=== PATIENT | male | born 1945 | race Caucasian/White ===

== ENCOUNTER 2022-07-08 05:46 | Day surgery (SDC) | payer MEDICARE, OTHER ==
[2022-07-08] VITALS (8 sets, daily range): BP systolic 90–166; BP diastolic 56–86; PULSE 70–80; TEMP 97.3–97.7
[~2022-07-08] VITALS: Ht 180.3 cm; Wt 97.3 kg
[2022-07-08] MEDS ORDERED: ZYLOPRIM 100MG100 MG PO (06:22)
[2022-07-08] MEDS ORDERED: BASAGLAR K100 UNIT/1 SQ (06:23)
[2022-07-08] MEDS ORDERED: RYBELSUS7 MG PO (06:24)
[2022-07-08] MEDS ORDERED: JANUVIA 100MG100 MG PO (06:25)
[2022-07-08] MEDS ORDERED: TRIAMC 0.025 80 TOP (06:26)
[2022-07-08] MEDS ORDERED: COZAAR 25MG25 MG/TAB PO (06:27)
[2022-07-08] MEDS ORDERED: LYRICA 100MG C100 M1 PO (06:28)
[2022-07-08] MEDS ORDERED: NEXIUM 40MG40 MG PO (06:28)
[2022-07-08] MEDS ORDERED: AMARYL4 MG PO (06:29)
[2022-07-08] MEDS ORDERED: GLUCOPHAGE1000 MG PO (06:30)
[2022-07-08] MEDS ORDERED: ETHAMBUTOL HYD400 MG PO (06:32)
[2022-07-08] MEDS ORDERED: ZYRTEC 10MG10 MG PO (06:34)
[2022-07-08] MEDS ORDERED: CRESTOR 10MG10 MG PO (06:35)
[2022-07-08] MEDS ORDERED: SINGULAIR 110 MG/TAB PO (06:35)
[2022-07-08] MEDS ORDERED: CLARITIN 1010 MG/TAB PO (06:36)
[2022-07-08] MEDS ORDERED: TRELEGY ELLIPT1 EACH IH (06:36)
[2022-07-08] MEDS ORDERED: ASPIRIN E.C. 8181 MG PO (06:37)
--- NOTE | 2022-07-08 10:45 | NUR ---
PATIENT ARRIVED BACK TO BAY 2 IN CART. PATIENT ALERT AND ORIENTED X3 , DENIES PAIN AND NAUSEA. BREATHING REGULAR AND UNLABORED, 4L VIA OXYMASK. DENIES FEELING SHORT OF BREATH. SKIN WARM AND DRY. ARM SLING PRESENT TO LEFT SHOULDER. VISIBLE FOAM TAPE DRESSING TO LEFT SHOULDER. DRESSING CLEAN, DRY AND INTACT. <3 SECOND CAPILLARY REFILL TO LEFT HAND. NO COMPLAINTS FROM PATIENT. SEE CHART FOR VITAL SIGNS. PATIENT HAD WATER, PUDDING AND VANESSA CRACKERS. BOTH FOOD AND DRINK TOLERATED WELL, NO DYSPHAGIA. PATIENT RESTING, CALL LIGHT IN REACH. [facility] () PRESENT IN ROOM.
--- NOTE | 2022-07-08 12:47 | NUR ---
PATIENT AMBULATED WITH STEADY GAIT TO THE RESTROOM AND VOIDED WITHOUT DIFFICULTY. DENIES PAIN AND NAUSEA. DRESSING TO LEFT SHOULDER CLEAN, DRY AND INTACT. ARM SLING IN PLACE WITH ICE OVER LEFT SHOULDER. DISCHARGE TEACHING COMPLETED WITH PRINTED INSTRUCTIONS FROM AND EDUCATION SENT HOME WITH PATIENT. PATIENT STATED HE ALREADY HAD A FOLLOW UP APPOINTMENT SET FOR NEXT FRIDAY. PATIENT AND VANIA () VERBALIZED UNDERSTANDING OF TEACHING. IV REMOVED. PATIENT CHANGED INTO PERSONAL CLOTHING AND WAS DISCHARGED HOME WITH [facility].
== END 2022-07-08 12:52 | disposition home or self-care (01) ==
LOC: SDCO 05:46
DX: M75.122 Complete rotator cuff tear or rupture of left shoulder, not specified as traumatic (principal); M75.22 Bicipital tendinitis, left shoulder; G89.18 Other acute postprocedural pain; K21.9 Gastro-esophageal reflux disease without esophagitis; I10 Essential (primary) hypertension; Z87.891 Personal history of nicotine dependence
CPT/HCPCS: A4619; C1713; J0690; J1100; J2250; J2405; J2704; J2795; J3010; J7120